=== PATIENT | male | born 1975 ===

== ENCOUNTER 2017-08-17 11:47 | Emergency (ER) | payer SELFPAY ==
[2017-08-17] MEDS ORDERED: Nitroglycerin 50 MG/250 ML BOT 250 ML ONE (11:58)
[2017-08-17] MEDS ORDERED: cefTRIAXone\\ROCEPHIN 2 GM VIAL ONE (12:13)
[2017-08-17] MEDS ORDERED: Sodium Chloride 0.9% 100 ML ONE (12:13)
[2017-08-17] MEDS ORDERED: Albuterol Sulfate 2.5 mg/3 ml Neb ONE ×2 (12:18→13:02)
[2017-08-17 12:29] LABS: #Basophils 0.1 thou/uL (0.0-0.2); #Eosinphils 0.7 thou/uL (0.0-0.7); #Lymphocytes 0.9 thou/uL (1.20-3.40); #Monocytes 0.7 thou/uL (0.11-0.59); #Neutrophils 14.9 thou/uL (1.40-6.50); %Basophils 0.8 % (0.0-1.0); %Lymphocytes 5.3 % (21.0-51.0); %Monocytes 3.9 % (0.0-10.0); Hemoglobin 16.8 g/dL (14.0-18.0); Mean Corpuscular Volume 97.1 fl (80.0-94.0); Mean Platelet Volume 6.9 fL (7.4-10.4); Platelet Count 218 thou/uL (130-400); RBC Distribution Width 13.5 % (11.5-14.5); Red Blood Cell (RBC) Count 5.09 mill/uL (4.70-6.10); White Blood Cell (WBC) Count 17.3 thou/uL (4.8-10.8)
[2017-08-17 12:39] LABS: ALT (SGPT) 21 U/L (8-55); AST (SGOT) 24 U/L (5-34); Albumin 4.2 g/dL (3.5-5.0); Alkaline Phosphatase 63 U/L (40-150); Anion Gap 16 mmol/L (10-20); BUN (Urea Nitrogen) 10 mg/dL (8.9-20.6); Bilirubin, Total 2.6 mg/dL (0.2-1.2); Calc. Creatinine Clearance 0 mL/min (70-130); Calcium 9.4 mg/dL (7.8-10.44); Carbon Dioxide 31 mmol/L (22-29); Chloride 97 mmol/L (98-107); Estimated GFR-MDRD Greater than 90; Globulin 4.3 g/dL (2.4-3.5); Glucose 108 mg/dL (70-105); Potassium 3.7 mmol/L (3.5-5.1); Protein, Total 8.5 g/dL (6.0-8.3); Sodium 140 mmol/L (136-145); pH (venous) 7.35 (7.35-7.45)
[2017-08-17 12:40] LABS: Base Excess 5.5 mEq/L (-2 - +2); Hemoglobin (Hb) 14.5 g/dL (13.2-17.3)
[2017-08-17 12:41] LABS: CKMB 4.2 ng/mL (0-6.6)
[2017-08-17] MEDS ORDERED: methylPREDNISolone Sod Succ/PF 125 MG/2 ML VIAL ONE (12:48)
[2017-08-17] MEDS ORDERED: Magnesium Sulfate 2 GM/100 ML BAG ONE (13:09)
--- NOTE | 2017-08-17 20:16 | RAD ---
PORTABLE CHEST 08/17/17 An AP portable film at 1153 shows moderate cardiomegaly without congestive change. The lungs are camron r. No large infiltrates or effusions were evident. The trachea is midline. IMPRESSION: Moderate cardiomegaly. POS: HOME
== END 2017-08-17 14:00 | disposition short-term general hospital (02) ==
LOC: BURERS 11:47
DX: J44.1 Chronic obstructive pulmonary disease with (acute) exacerbation (principal); R09.02 Hypoxemia; I11.0 Hypertensive heart disease with heart failure; I50.9 Heart failure, unspecified; F17.210 Nicotine dependence, cigarettes, uncomplicated; Z79.899 Other long term (current) drug therapy
CPT/HCPCS: 71010; 80053; 82553; 82805; 83880; 84484; 85025; 85379; 87040; 87149; 93005; 94640; 94660; 94760; 96365; 96367; 96368; 96375; J0696; J1956; J2930; J3475; J7050; J7611; J7620